=== PATIENT | female | born 1985 | race Caucasian/White ===

== ENCOUNTER 2024-12-13 08:41 | Emergency (ER) | payer MEDICAID, SELFPAY ==
[2024-12-13 08:43] VITALS: BMI 25.1
[2024-12-13 09:17] VITALS: BP 142/90; PULSE 109; RESP 18; TEMP 37; O2SAT 98
--- NOTE | 2024-12-13 09:35 | XR_ITS ---
Examination: Lumbar spine 3 views TECHNIQUE: AP lateral coned lateral lower lumbar spine 3 views Exam date and time: December 13, 2024 0946 hours INDICATIONS: Low back pain beginning 2 weeks ago. FINDINGS: Adequate alignment lumbar vertebral bodies No lumbar fracture Moderate degenerative disc disease L3-L4, L4-L5, advanced degenerative disc disease L5-S1 IMPRESSION: Advanced degenerative disc disease L5-S1
[2024-12-13] MEDS: IBUPROFEN TAB 400 MG TABLET 800 MG PO (09:50)
[2024-12-13] MEDS: CYCLObenzaPRINE 5 MG TABLET PO (09:50)
[2024-12-13 09:57] LABS: Collection Type, Urine Clean Catch
[2024-12-13 10:03] LABS: Bilirubin,Urine Negative (Negative); Blood,Urine Negative (Negative); Clarity,Urine Clear (Clear/Hazy); Color,Urine Lt-Yellow (Lt Yel-Yel); Glucose, Urine 4+ (Negative); Ketones,Urine Negative (Negative); Leukocyte Esterase,Urine Negative (Negative); Nitrite,Urine Negative (Negative); Protein,Urine Negative (Neg - Trace); RBC,Urine 2 /hpf (0-3); Specific Gravity,Urine 1.047 (1.001-1.035); Squamous Epithelial Cell,Urine 1 /hpf (0-5); Urobilinogen,Urine Negative mg/dL (0.0-1.0); WBC,Urine < 1 /hpf (0-5)
[2024-12-13 10:08] LABS: HCG Qualitative,Urine Negative
--- NOTE | 2024-12-13 11:15 | EDNOTE_ITS ---
<Statement entered by Deena Henley MD - 12/17/24 07:13> As co-signing physician, I was present and available for consult prn. I concur with the plan and care as documented by the midlevel provider. ED Back Injury Pain RME/HPI General Chief Complaint: Back Pain/Injury Stated Complaint: BACK PAIN, HIGH BLOOD GLUCOSE Time Seen by Provider: 12/13/24 09:08 Source: patient Arrival date/time: 12/13/24 08:41 This is a 39-year-old female who presents to the emergency department with complaints of lower back pain. Reports she has had chronic lower back pain for quite some years. Has not had any consistent medical treatment due to recently being incarcerated and having no medical insurance. Patient also requesting medication for her diabetes which she has been off for approximately 2 months. Patient denies any saddle anesthesia, bowel or bladder dysfunction no urinary symptoms. No fever or IV drug use. Mode of arrival: ambulatory Related Data Previous Rx's ?Medication ?Instructions ?Recorded cyclobenzaprine 5 mg tablet 5 mg PO TID PRN muscle spa sm #14 12/13/24 tabs gabapentin 300 mg capsule 300 mg PO Q8H #30 caps 12/13 lidocaine 5 % topical patch 1 patch topical Q24H #15 e a 12/13/24 metformin 1,000 mg tablet 1,000 mg PO BID #30 tabs 05/30 Allergies Allergy/AdvReac Type Severity Reaction Status Date / Time No Known Allergies Allergy Verified 12/13/24 08:42 Review of Systems Review of Systems Systems Reviewed: All systems reviewed, normal except as documented Narrative Review of Systems: Gen: No fever, no chills, no weight loss EYES: No discharge, no visual changes, no pain HEENT: No ear pain, no congestion, no sore throat PULM: No shortness of breath, no cough, no congestion CV: No chest pain, no dyspnea on exertion, no palpitations GI: No nausea, no vomiting, no diarrhea, no pain, no constipation : No frequency, no urgency, no dysuria Musc/skel: No joint pain, positive chronic back pain Skin: No rash Psyc: No hallucinations, no depression Heme/Lymph: No easy bleeding or bruising tendencies Neuro: No weakness, no headache ED Exam Narrative Physical exam: General: Sittiing in Exam table in no acute distress, answering questions appropriately HENT: normocephalic, atraumatic, EOMI, PERRLA, moist mucous membranes Chest: chest wall is nontender Cardiac: regular rate and rhythm, normal S1 and S2, no murmurs, rubs, or gallops, capillary refill ?2 seconds Pulmonary: clear to auscultation bilaterally, no wheezing, crackles, or rhonchi Abdominal: active bowel sounds, soft, nontender, nondistended Neuro: A&OX3, CN II-XII intact, sensation grossly intact bilaterally in UE and LE. Skin: no rashes, no ecchymosis Ext: no lower extremity edema BACK: Paraspinal tenderness. No midline tenderness or step-offs. Course Quality Measures none Orders Category Date Time Status Bedside Blood Glucose NOW Care 12/13/24 09:35 Completed XR lumbar spine 2-3V Stat Exams 12/13/24 09:35 Completed HCG Qualitative,Urine Stat Lab 12/13/24 09:49 Completed Urinalysis Stat Lab 12/13/24 09:49 Completed CYCLObenzaPRINE [Flexeril] Med 12/13/24 09:35 Discontinued 5 mg PO X1 ONE HYDROcodone*/APAP 7.5/325 [[place]orne 7.5/325] Med 12/13/24 12:35 Discontinued 1 tab PO X1 ONE Ibuprofen Tab [Motrin Tab] Med 12/13/24 09:35 Discontinued 800 mg PO X1 ONE Vital Signs Vital signs: Vital Signs Temperature 98.6 F 12/13/24 09:17 Pulse Rate 109 H 12/13/24 09:17 Respiratory Rate 18 12/13/24 09:17 Blood Pressure 142/90 H 12/13/24 09:17 Pulse Oximetry (%) 98 12/13/24 09:17 Oxygen Delivery Method Room Air 12/13/24 09:17 Back Pain / Injury MDM Narrative MDM Narrative:: 39-year-old female diabetic here with lumbar back pain appears to have advanced degenerative disc disease chronic back pain. Has poor follow-up outpatient. No fever, weakness, abdominal pain, saddle anesthesia, bowel/bladder incontinence noted. No hx of IVDA. Gait and sensation intact. No signs of emergent pathology at this time. Low suspicion for emergent etiology such as epidural abscess or spinal cord compression/cauda equina. Exam is consistent with musculoskeletal back pain. X-ray reveals advanced degenerative disc disease. Strictly advised patient to attempt to establish care nearby clinic. Pain medication was given muscle relaxers relieving her pain Patient's glucose was in the 300s while in ED patient has had no medication outpatient. I did advise patient I will start her on metformin thousand twice daily and she needs to make an appointment as soon as possible with her doctor clinic.. Patient verbalized understanding Patient data External records reviewed:: [facility] previous records Clinical information provided by:: patient Social determinants that could affect healthcare access:: other (specify) (Substance abuse, housing,) Patient has the following chronic illnesses:: Diabetes, How is presenting disease/condition affected by chronic disease/condition?: no chronic disease Evaluation data The following diagnostics were reviewed and interpreted by me:: lab results and radiology exam(s) Lab and/or radiology exams considered but not ordered:: No Interpretation Summary: Examination: Lumbar spine 3 views TECHNIQUE: AP lateral coned lateral lower lumbar spine 3 views Exam date and time: December 13, 2024 0946 hours INDICATIONS: Low back pain beginning 2 weeks ago. FINDINGS: Adequate alignment lumbar vertebral bodies No lumbar fracture Moderate degenerative disc disease L3-L4, L4-L5, advanced degenerative disc disease L5-S1 IMPRESSION: Advanced degenerative disc disease L5-S1 Medications / Prescriptions Medications or Prescriptions considered but not ordered:: Consider Hawthorne's however patient has history of drug abuse Medication administrations:: Medication Administration History Discontinued Medications Hydrocodone Bitart/Acetaminophen (Hydrocodone/Apap 7.5/325 Tablet) 1 tab PO X1 ONE Stop: 12/13/24 12:36 Last Admin: 12/13/24 12:38 Dose: 1 tab Documented By: SHENA Cyclobenzaprine HCl (Cyclobenzaprine 5 Mg Tablet) 5 mg PO X1 ONE Stop: 12/13/24 09:36 Last Admin: 12/13/24 09:50 Dose: 5 mg Documented By: SHENA Ibuprofen (Ibuprofen Tab 400 Mg Tablet) 800 mg PO X1 ONE Stop: 12/13/24 09:36 Last Admin: 12/13/24 09:50 Dose: 800 mg Documented By: SHENA All medications administered and effective Consultations Consultation(s) initiated? (list below): No Diagnosis Differential diagnosis back pain/injury: lumbar radiculopathy, sciatica, strain of lumbar region and thoracic back pain Most likely diagnosis given after review of the tests above:: Lumbar disc disease, hyperglycemia with diabetes. Noncompliant patient Admission Indicated Admission indicated?: not indicated Admission Request Was there a request for admission?: No Disposition Plan Disposition Plan: Discharge Discharge Attestation Discharge Attestation: The patient and all family members were given an opportunity to ask questions and understood the discharge instructions. Discharge instructions specifically effects, indications for sooner follow up or return to the emergency department, and the expected course of current diagnosis. Patient condition: Stable Discharge Plan Plan Patient Disposition: HOME (Self Care) Patient condition on transfer: Stable Prescriptions/Referrals Prescriptions/Med Rec: New gabapentin 300 mg capsule 300 mg PO Q8H Qty: 30 0RF metformin 1,000 mg tablet 1,000 mg PO BID Qty: 30 0RF cyclobenzaprine 5 mg tablet 5 mg PO TID PRN (Reason: muscle spasm) Qty: 14 0RF lidocaine 5 % adhesive patch,medicated 1 patch topical Q24H Qty: 15 0RF Rx Instructions: leave on most painful area for up to 12 hrs Referrals: No Primary/Family,Physician [Primary Care Provider] - In 1 week Problem List Clinical Impression: Diabetes mellitus, stable, Degenerative disk disease Patient/Caregiver Discharge Instructions Discharge Activity: activity as tolerated Education Materials: ED Sciatica, ED Diet: Diabetes Additional Instructions: -You will need to rest and have activities modification avoid heavy lifting twisting motions or prolonged sitting or standing. -Will need to follow-up with your doctor in 2 to 3 days for follow-up care Might need physical therapy Might need referral for MRI outpatient, Diagnostic imaging (like MRI) might be used to assess the extent of the bulging disc, particularly if symptoms worsen or persist. -Medications sent please use as directed Can include ibuprofen, muscle relaxant, gabapentin Lifestyle modifications weight reduction Return to the emergency department this any worsening symptoms change in condition. DM-it is also very important to use start or go to a new clinic to establish care to control your diabetes. I will start you on metformin at 1000 mg twice daily Return to the emergency department this any worsening symptoms any condition Print Language: Welsh Stand Alone Forms: Alicia Award Info., Patient Portal Info Letter PA/EMERGENCY DEPT TECH Supervising Physician PA/EMERGENCY DEPT TECH Supervising Physician: Dr. Henley
[2024-12-13] MEDS: HYDROcodone/APAP 7.5/325 TABLET 1 TAB PO (12:38)
== END 2024-12-13 12:39 | disposition home or self-care (01) ==
PROVIDERS: Nurse Practitioner Primary Care; Emergency Provider Emergency Medicine
DX: M51.370 Other intervertebral disc degeneration, lumbosacral region with discogenic back pain only (principal); E11.65 Type 2 diabetes mellitus with hyperglycemia; F19.10 Other psychoactive substance abuse, uncomplicated; Z91.199 Patient's noncompliance with other medical treatment and regimen due to unspecified reason; Z79.84 Long term (current) use of oral hypoglycemic drugs; Z79.899 Other long term (current) drug therapy
CPT/HCPCS: 72100; 81001; 81025; 99283; A9270